=== PATIENT | male | born 1935 | race Caucasian/White ===

== ENCOUNTER → 2020-09-13 14:18 | Outpatient (CLI) | payer MEDICARE, SELFPAY ==
--- NOTE | ~2020-09-13 | XR_ITS ---
XR abdomen/kub 1V 09/13/2020 15:16 INDICATION: Hematuria TECHNIQUE: KUB COMPARISON: 07/20/2005 FINDINGS: Bowel gas pattern is normal. There is no evidence of free air, mass, organomegaly, ascites or obstruction. No abnormal calculi are seen. The bones appear intact. There is levoscoliosis cent ered at the thoracolumbar junction. Moderate osteoarthritis of the hips. IMPRESSION: 1: No acute abdominal abnormality identified. Reviewed, dictated and finalized at location B.
--- NOTE | ~2020-09-13 | CT_ITS ---
EXAMINATION: CT abdomen pelvis wo/w con DATE: 09/13/2020 15:16 INDICATION: Gross hematuria TECHNIQUE: Computed tomography (CT) of the abdomen and pelvis was performed without intravenous contr ast. CT of the abdomen and pelvis was then performed with a total of 130 mL Omnipaque-350 intravenous contrast using a double-bolus technique for simultaneous opacification of the renal parenchyma and r enal collecting system. Automated exposure control and iterative reconstruction technique were employ ed. The dose-length product was 2389.01 mGy-cm. COMPARISON: 07/20/2005 FINDINGS: Eventration of the anterior right hemidiaphragm. Mild atelectasis in the bilateral lower lobes. There are couple 4 mm nodules in the right middle and right lower lobes. Cardiomegaly. Small amount of ath erosclerotic coronary artery calcific location. Aortic valve calcification. Very small pericardial ef fusion. Small sliding-type hiatal hernia. Liver, gallbladder, pancreas and bilateral adrenal glands a re normal. A few scattered small splenic calcifications consistent with old granulomatous disease. Be wels are normal. The appendix is not visualized. No pericecal inflammatory change to suggest acute ap pendicitis. There are multiple bilateral renal cysts the largest measuring 5 cm at both kidneys. There are couple nonobstructing stones in the left kidney measuring 1 mm the lower pole and 2-3 mm at the at the inte rpolar region. No stones in the right kidney or along the bilateral ureters. The majority of both ure ters are opacified with contrast on the delayed images. No urothelial irregularities identified. Prostatomegaly which impresses upon the base of the bladder. There is mild trabeculation of the bladd er likely related to chronic outlet obstruction. Postoperative change of prior left inguinal hernia r epair. Small fat-containing right inguinal hernia. No free intraperitoneal gas or fluid. No pathologi jelani enlarged abdominal or pelvic lymphadenopathy. Moderate thoracolumbar spondylosis. Chronic T11 b urst fracture with 60% vertebral body height loss as well as to 3 mm retropulsion resulting in mild c entral canal stenosis at this level. IMPRESSION: 1. Nonobstructing left nephrolithiasis. 2. Cardiomegaly with small pericardial effusion. 3. Couple 4 mm nodule in the right middle and lower lobes. If the patient is low risk for lung cancer , no follow-up is needed. If the patient is high risk (i.e., history of smoking or asbestos or signif icant radiation exposure), optional follow-up low-dose noncontrast chest CT could be considered at 12 months. 4. Small sliding-type hiatal hernia. 5. Prostatomegaly. 6. Small fat-containing right inguinal hernia with postoperative change of prior left inguinal hernia repair. Reviewed, dictated and finalized at location A. IMPRESSION: 1. Nonobstructing left nephrolithiasis. 2. Cardiomegaly with small pericardial effusion. 3. Couple 4 mm nodule in the right middle and lower lobes. If the patient is lo w risk for lung cancer, no follow-up is needed. If the patient is high risk (i. e., history of smoking or asbestos or significant radiation exposure), optional follow-up low-dose noncontrast chest CT could be considered at 12 months. 4. Small sliding-type hiatal hernia. 5. Prostatomegaly. 6. Small fat-containing right inguinal hernia with postoperative change of prio r left inguinal hernia repair.
[2020-09-13 14:49] LABS: Estimated Glomerular Filt Rate > 60
== END ==
PROVIDERS: PCP Family Medicine Adolescent Medicine; Visit Provider Nurse Practitioner Adult Health
DX: R31.0 Gross hematuria (principal); N20.0 Calculus of kidney; I51.7 Cardiomegaly; K44.9 Diaphragmatic hernia without obstruction or gangrene; N40.0 Benign prostatic hyperplasia without lower urinary tract symptoms
CPT/HCPCS: 74018; 74178; Q9967

== ENCOUNTER → 2020-09-28 16:03 | Outpatient (CLI) | payer MEDICARE, SELFPAY ==
--- NOTE | ~2020-09-28 | XR_ITS ---
XR chest 2V DATE: 09/28/2020 16:24 INDICATION: Dyspnea on exertion. History of asbestos exposure. TECHNIQUE: PA and lateral views COMPARISON: None FINDINGS: There is cardiomegaly. There is thoracic aortic ectasia and unfolding. No pulmonary consolidation, pleural effusion, pulmonary vascular congestion or pneumothorax is eviden t. No hilar or mediastinal enlargement is evident. Diffuse osteopenia. IMPRESSION: Cardiomegaly Osteopenia Reviewed, dictated and finalized at location A. IMPRESSION: Cardiomegaly Osteopenia
== END ==
PROVIDERS: PCP Family Medicine Adolescent Medicine; Visit Provider Family Medicine Adolescent Medicine
DX: R06.09 Other forms of dyspnea (principal); I51.7 Cardiomegaly; M85.88 Other specified disorders of bone density and structure, other site
CPT/HCPCS: 71046

== ENCOUNTER 2021-01-27 03:26 | Emergency (ER) | payer MEDICARE, SELFPAY ==
[2021-01-27 03:29] VITALS: BP 154/92; PULSE 85; RESP 18; TEMP 36.1; O2SAT 99
--- NOTE | 2021-01-27 03:54 | ED.GENADULT ---
HPI - General Adult General Chief complaint: Urogenital-Male Stated complaint: Unable to urinate Time Seen by Provider: 01/27/21 03:37 History of Present Illness HPI narrative: Patient 85-year-old gentleman who presents the emergency department with chief complaint of urinary retention. The patient reports he has prior history of urinary retention in the past and reports that this evening around 5:00 he was unable to urinate on his own. The patient attempted to straight cath himself but was unable to compress his bladder. Patient reports has had some subjective fevers at home and noticed that his urine was a little cloudy. The patient denies chest pain denies shortness of breath. The patient reports he has seen urology in the past for the symptoms Related Data Allergies Allergy/AdvReac Type Severity Reaction Status Date / Time No Known Allergies Allergy Verified 01/27/21 03:38 Review of Systems Review of Systems: A 10 system review of systems was completed on the patient and is negative except for what is stated in the HPI. Nursing and ancillary documentation was reviewed. Exam Narrative: GENERAL: Well-appearing, well-nourished, and in no acute distress. HEAD: Normocephalic, atraumatic. EYES: PERRLA and EOMI. ENT: Nares clear, no rhinorrhea or epistaxis. Mucous membranes moist. NECK: Supple. CHEST: Clear to auscultation. No respiratory distress. HEART: Regular rate and rhythm. No murmur heard. Normal peripheral pulses. ABDOMEN: Soft, nontender, nondistended, normal active bowel sounds. EXTREMITIES: Normal range of motion. No edema. SKIN: Warm, dry, no rash. NEURO: No focal deficits. Alert and oriented x3. PSYCH: Normal mood and affect. Course Vital Signs Vital signs: Vital Signs Temperature 36.1 C L 01/27/21 03:29 Pulse Rate 85 01/27/21 03:29 Respiratory Rate 18 01/27/21 03:29 Blood Pressure 154/92 H 01/27/21 03:29 Pulse Oximetry 99 01/27/21 03:29 Temperature 36.1 C L 01/27/21 03:29 Pulse Rate 85 01/27/21 03:29 Respiratory Rate 18 01/27/21 03:29 Blood Pressure 154/92 H 01/27/21 03:29 Pulse Oximetry 99 01/27/21 03:29 Medical Decision Making Vital Signs Vital Signs: Vital Signs Temperature 36.1 C L 01/27/21 03:29 Pulse Rate 85 01/27/21 03:29 Respiratory Rate 18 01/27/21 03:29 Blood Pressure 154/92 H 01/27/21 03:29 Pulse Oximetry 99 01/27/21 03:29 Temperature 36.1 C L 01/27/21 03:29 Pulse Rate 85 01/27/21 03:29 Respiratory Rate 18 01/27/21 03:29 Blood Pressure 154/92 H 01/27/21 03:29 Pulse Oximetry 99 01/27/21 03:29 Lab Data Labs: Lab Results 01/27/21 Range/Units 03:51 Urine Color Yellow (Yellow) Urine Appearance Clear (Clear) Urine pH 6.0 (5.0-9.0) Ur Specific Coulter 1.023 (1.001-1.035) Urine Protein 1+ H (Negative) mg/dL Urine Glucose (UA) 2+ H (Negative) mg/dL Urine Ketones Negative (Negative) mg/dL Ur Blood (Man) 2+ H (Negative) Urine Nitrate Positive H (Negative) Urine Bilirubin Negative (Negative) Urine Urobilinogen Negative (<2.0) mg/dL Leukocyte Esterase Rfl 2+ H (Negative) DACIA/UL Urine RBC 21-50 H (0-2) /hpf Urine WBC >75 H /hpf Urine Bacteria 3+ H /hpf Urine Mucus Rare /lpf Discharge Plan Discharge Clinical Impression: Acute retention of urine Urinary tract infection Qualifiers: Urinary tract infection type: acute cystitis Hematuria presence: without hematuria Qualified Code(s): N30.00 - Acute cystitis without hematuria Patient Disposition: Home, Self-Care Condition: Stable Instructions: Antibiotic Form, Urinary Retention in Men (ED), Urinary Tract Infection in Men (ED), Schneider Catheter Placement and Care (ED) Prescriptions: New cephalexin 500 mg capsule 500 mg PO Q8H 7 Days Qty: 21 RF: 0 Follow-up/Referrals: Jonathan Casanova MD [Primary Care Provider] - Time of Disposition: 04:08
[2021-01-27 04:05] LABS: Add Urine Microscopic? YES; Appearance Urine Clear (Clear); Bacteria Urine 3+ /hpf; Bilirubin Urine Negative (Negative); Blood Urine 2+ (Negative); Color Urine Yellow (Yellow); Glucose Urine UA 2+ mg/dL (Negative); Ketones Urine Negative (Negative); Leukocyte Esterase Ur 2+ LEU/UL (Negative); Mucus Urine Rare /lpf; Nitrate Urine Positive (Negative); Protein Urine 1+ mg/dL (Negative); RBC Urine 21-50 /hpf (0-2); Specific Grav Ur 1.023 (1.001-1.035); Urobilinogen Urine Negative mg/dL (<2.0); WBC Urine >75 /hpf
[2021-01-27] MEDS: CEPHALEXIN 500 MG CAPSULE PO (04:31)
[2021-01-27 04:50] VITALS: BP 152/78; PULSE 73; RESP 16; O2SAT 96
== END 2021-01-27 04:51 | disposition home or self-care (01) ==
LOC: ANHED 04:17
PROVIDERS: Emergency Provider Emergency Medicine; PCP Family Medicine Adolescent Medicine
DX: N30.00 Acute cystitis without hematuria (principal); R33.9 Retention of urine, unspecified
CPT/HCPCS: 51702; 81001; 87086; 87147; 87181; 87186; 99283; A9270

== ENCOUNTER 2022-05-03 07:49 | Emergency (ER) | payer MEDICARE, SELFPAY ==
[2022-05-03 07:53] VITALS: BP 136/78; PULSE 82; RESP 18; TEMP 36.6; O2SAT 97
--- NOTE | 2022-05-03 09:18 | ED.MALEGU ---
HPI - Male Genitourinary General Chief complaint: Urogenital-Male Stated complaint: unable to urinate Time Seen by Provider: 05/03/22 09:10 History of Present Illness HPI Narrative: Patient is an 86-year-old male with a history of BPH here for evaluation of dysuria over the past 3 days and urinary retention for the past 5 hours. Patient states that he was seen by his PCP for the dysuria and was given Macrobid after he was found to have a UTI on urinalysis. Patient has been compliant with the medicine but denies improvement of dysuria. He denies any back pain, fevers, nausea, vomiting. Patient has a history of urinary retention and has required Schneider catheter placement in the past. Related Data Allergies Allergy/AdvReac Type Severity Reaction Status Date / Time No Known Allergies Allergy Verified 04/23/22 09:31 Review of Systems Review of Systems: Gen: Denies fevers or chills Eyes: Denies eye pain or visual change ENT: Denies congestion Respiratory: Denies shortness of breath or cough CV: Denies chest pain or palpitations GI: Denies abdominal pain nausea, emesis or diarrhea reports urinary retention and dysuria. Musculoskeletal: Denies back pain or muscle pain Neuro: Denies numbness, tingling, weakness or focal weakness Skin: Denies rash Except as documented, all other systems reviewed and negative PMFSH Past Medical History Medical History BPH with obstruction/lower urinary tract symptoms Elevated PSA Hypertension Insomnia Weak urinary stream Surgical History Surgical History History of left inguinal hernia repair (~2005) Family History Family History (Updated 04/23/22 @ 18:04 by Kirti Alvarez PA-C) Daughter Carcinoma of colon Other Coronary artery disease Diabetes mellitus Social History Social History (Updated 04/23/22 @ 18:05 by Kirti Alvarez PA-C) Smoking status: Never smoker Alcohol intake: never Gender identity (if verbalized by the patient): Male Exam Narrative: APPEARANCE: Well appearing, no pain in distress, well-nourished. Head: Normocephalic and atraumatic. EYES: PERRLA/EOMI, conjunctivae clear NOSE: No nasal drainage EARS: External ear normal in appearance THROAT: Oropharynx is clear. Mucous membranes are moist. NECK: Supple. No adenopathy, no masses. RESPIRATORY: Airway patent, respirations nonlabored. Clear to auscultation bilaterally, no rales, rhonchi, wheezing. CARDIOVASCULAR: Regular rate and rhythm without murmurs, rubs, or gallops. ABDOMINAL: Normoactive bowel sounds. Soft, nontender, nondistended. No rebound tenderness or guarding. MUSCULOSKELETAL: Extremities are warm and well-perfused. Moves all extremities well. No edema. NEURO: Normal speech. No focal neurologic deficits. SKIN: Skin is warm and dry. No rashes. PSYCHIATRIC: Normal affect/mood.. Course Vital Signs Vital signs: Vital Signs Temperature 97.8 F 05/03/22 07:53 Pulse Rate 82 05/03/22 07:53 Respiratory Rate 18 05/03/22 07:53 Blood Pressure 136/78 05/03/22 07:53 Pulse Oximetry 97 05/03/22 07:53 Oxygen Delivery Room Air 05/03/22 07:53 Temperature 97.8 F 05/03/22 07:53 Pulse Rate 82 05/03/22 07:53 Respiratory Rate 18 05/03/22 07:53 Blood Pressure 136/78 05/03/22 07:53 Pulse Oximetry 97 05/03/22 07:53 Oxygen Delivery Room Air 05/03/22 07:53 MDM - Male Genitourinary MDM Narrative Medical decision making narrative: 86-year-old male here for evaluation of dysuria and urinary retention for the past 5 hours, already treated with Macrobid as outpatient. Pre-void residual is 350. Post void residual is 200 cc. Patient feels better after voiding. It appears his urine is still infected. Do not have previous culture. Will give dose of ceftriaxone in the ED and sent home with Keflex and urology follow-up. No signs or symptoms
[2022-05-03 10:03] LABS: Add Urine Microscopic? YES; Appearance Urine Cloudy (Clear); Bilirubin Urine Negative (Negative); Blood Urine 1+ (Negative); Color Urine Brown (Yellow); Glucose Urine UA Negative (Negative); Ketones Urine Negative (Negative); Leukocyte Esterase Ur 3+ LEU/UL (Negative); Nitrate Urine Positive (Negative); Protein Urine Negative (Negative); Urobilinogen Urine 0.2 mg/dL (<2.0)
[2022-05-03 10:30] LABS: Bacteria Urine Trace /hpf; Budding Yeast Urine Present /hpf; RBC Urine 21-50 /hpf (0-2); WBC Clumps Urine Present /HPF; WBC Urine >75 /hpf
[2022-05-03] MEDS: cefTRIAXone 1 GM VIAL IM (10:56)
[2022-05-03] MEDS: LIDOCAINE HCL 1% LOCAL INJ 20 ML VIAL (10:57)
--- NOTE | 2022-05-03 11:06 | PC.NURSE ---
Patient seen and assessed by provider.
== END 2022-05-03 11:13 | disposition home or self-care (01) ==
LOC: ANHED 09:32
PROVIDERS: Emergency Provider Physician Assistant; PCP Family Medicine Adolescent Medicine
DX: N30.00 Acute cystitis without hematuria (principal); N40.1 Benign prostatic hyperplasia with lower urinary tract symptoms; N13.8 Other obstructive and reflux uropathy; I10 Essential (primary) hypertension
CPT/HCPCS: 81001; 87086; 87147; 87181; 87186; 96372; 99283; J0696